=== PATIENT | male | born 1955 | race Caucasian/White ===

== ENCOUNTER 2016-08-14 21:29 | Observation (INO) | payer BC ==
[~2016-08-14] VITALS: Ht 175.3 cm; Wt 95.0 kg
[~2016-08-14 21:29] MED LIST: ADVAIR 500/501 DISK IH; AMLODIPINE BESYL5 MG PO; ASPIR-LOW81 MG PO; ATORVASTATIN CA80 MG PO; BRILINTA90 MG PO; BYSTOLIC10 MG PO; BYSTOLIC20 MG PO; CRESTOR5 MG PO; DILAUDID2 MG PO; DIOVAN160 MG PO; ECOTRIN325 MG PO; EXFORGE 5/161 TABLET PO; Ecotrin PO; LEVOTHROID,S0.112 MG PO; LEVOTHYROXINE112 MCG PO; LISINOPRIL10 MG PO; LOPRESSOR25 MG PO; LOSARTAN POTASS25 MG PO; METFORMIN HCL500 MG PO; NASOCORT AQ; NITROSTAT0.4 MG SL; PANTOPRAZOLE SO40 MG PO; PREDNISONE5 MG PO; PREVACID30 MG PO; PROAIR HFA8.5 GM IH; SINGULAIR10 MG PO; ST. JOSEPH ASPI81 MG PO; TRICOR145 MG PO; VITAMIN D2000 UNIT PO; VITAMIN D31000 UNIT PO
[2016-08-14 21:56] LABS: HEMATOCRIT 45.2 % (38.0-50.0); MCH 32.7 PG (29.0-34.0); MCHC 33.4 G/DL (30.0-36.0); MCV 97.8 FL (86-99); MEAN PLAT.VOLUME 10.3 uM^3 (9.0-12.4); PLATELET COUNT 238 K/uL (156-360); RBC DIS.WIDTH-CV 11.9 % (11.8-14.6); RBC DIS.WIDTH-SD 43.2 % (39-53); RED BLOOD COUNT 4.62 M/uL (4.00-5.50); WHITE BLOOD COUNT 7.1 K/uL (4.1-10.2)
[2016-08-14 22:04] LABS: CHLORIDE 105 mEq/L (99-109); SODIUM 138 mEq/L (136-147)
[2016-08-14 22:05] LABS: GLUCOSE 246 mg/dL (70-99)
[2016-08-14 22:07] LABS: ANION GAP 11 MEQ/L (2-14)
[2016-08-14 22:09] LABS: GFR ESTIMATE (CALCULATED) > 59 mL/min/
[2016-08-14 22:10] LABS: UREA NITROGEN (BUN) 15 mg/dL (9-23)
[2016-08-14 22:18] LABS: TROP-I INTERPRETATION NEGATIVE; TROPONIN-I < 0.01 ng/mL (0.0-0.30)
[2016-08-14 22:44] LABS: D-DIMER ELISA < 0.15 mg/L FEU (< 0.57)
[2016-08-15] MEDS ORDERED: CRESTOR10 MG PO (00:24)
[2016-08-15] MEDS ORDERED: BRILINTA60 MG PO (00:24)
[2016-08-15] MEDS ORDERED: PROTONIX40 MG PO (00:25)
[2016-08-15] MEDS ORDERED: DULERA 100 MCG/13 GM IH (00:26)
[2016-08-15] MEDS ORDERED: VITAMIN D31000 UNI1 PO (00:26)
[2016-08-15] MEDS ORDERED: LYRICA50 MG PO (00:26)
[2016-08-15 04:34] LABS: TROP-I INTERPRETATION NEGATIVE; TROPONIN-I < 0.01 ng/mL (0.0-0.30)
[2016-08-15 04:45] LABS: HDL CHOLESTEROL 34 MG/DL (Desirable>=40); LDL CHOLESTEROL 67 mg/dL (Desirable<100); NON-HDL CHOLESTEROL 84 mg/dL (Desirable<160); TOTAL CHOLESTEROL 118 mg/dL (Desirable<200); TRIGLYCERIDES 83 MG/DL (Normal: <150)
[2016-08-15 04:51] LABS: INFLUENZA A VIRAL ANTIGEN NEGATIVE; INFLUENZA B VIRAL ANTIGEN NEGATIVE
[2016-08-15 07:50] VITALS: BP 112/69
[2016-08-15 08:00] LABS: POINT-OF-CARE METER ID UU14162513
[2016-08-15 10:33] LABS: TROP-I INTERPRETATION NEGATIVE; TROPONIN-I 0.01 ng/mL (0.0-0.30)
[2016-08-15 11:49] VITALS: BP 120/69
[2016-08-15 11:54] LABS: POINT-OF-CARE METER ID UU13113700
== END 2016-08-15 15:13 | disposition home or self-care (01) ==
LOC: EME 21:29 → EDOF 08-15 00:46 → 5WEST 08-15 02:49
PROVIDERS: Internal Medicine; Physician Assistant Medical
DX: R07.89 Other chest pain (principal); M54.9 Dorsalgia, unspecified; R05 Cough; I25.10 Atherosclerotic heart disease of native coronary artery without angina pectoris; G43.909 Migraine, unspecified, not intractable, without status migrainosus; G89.29 Other chronic pain; K21.9 Gastro-esophageal reflux disease without esophagitis; I10 Essential (primary) hypertension; E78.5 Hyperlipidemia, unspecified; E11.9 Type 2 diabetes mellitus without complications; K44.9 Diaphragmatic hernia without obstruction or gangrene; G47.33 Obstructive sleep apnea (adult) (pediatric); E03.9 Hypothyroidism, unspecified; J44.9 Chronic obstructive pulmonary disease, unspecified; J45.909 Unspecified asthma, uncomplicated; Z91.19 Patient's noncompliance with other medical treatment and regimen
CPT/HCPCS: 71020; 80048; 80061; 82948; 84484; 85027; 85379; 87502; 93005; 99281; 99285; G0378; J1650; J1815